=== PATIENT | male | born 1955 | race Caucasian/White ===

== ENCOUNTER → 2016-08-02 | Outpatient (CLI) | payer OTHER ==
[~2016-08-02] MED LIST: ASPI-482 PO; BENA20TA2 PO; CELE100C PO; CLON1TAB3 PO; CRESTOR10 MG PO; ESOM20CA PO; GADOBUTROL 10 MMOL/10 ML VIAL IV ONE; OXYC10TA PO
--- NOTE | 2016-08-02 13:45 | KCIC ---
PROCEDURE Three-view lumbar spine dated 08/02/2016. HISTORY Post laminectomy syndrome. Low back pain. Right hip pain. TECHNIQUE Lateral view and flexion extension views obtained. COMPARISON MRI dated 08/02/2016. Findings: Slight retrolisthesis of L4 on L5 and L3 on L4, stable on the flexion-extension views. Sagittal alignment is otherwise anatomic. Vertebral body heights are maintained. Mild hypertrophic change of the superior and inferior endplates throughout. Mild disc space narrowing at L4 all 5. Moderate arthrosis lower lumbar apophyseal joints. IMPRESSION - Mild retrolisthesis of L3 on L4 and L4 on L5, stable on flexion extension imaging. - Mild to moderate lower lumbar spondylosis. Electronically signed by: Ken Clemons (Aug 02, 2016 13:44:10)
--- NOTE | 2016-08-02 14:02 | KCIC ---
PROCEDURE MRI lumbar spine with and without contrast. HISTORY Low back pain and right hip pain. Prior surgery. TECHNIQUE Sagittal T1, sagittal T2, sagittal STIR, axial T1, and axial T2 sequences are provided. Patient received 10 milliliters of intravenous Gadavist and post-contrast axial and sagittal imaging was performed. COMPARISON November 20, 2013. There is also a CT myelogram from December 17, 2013. FINDINGS There is negligible retrolisthesis at L4-L5. There is otherwise no malalignment. There is minimal endplate edema at L4-L5 which appears degenerative. There is a small hemangioma at L2. There is disc desiccation at L1-L2, L4-L5, and L5-S1. Disc height is mildly narrowed at L4-L5. The conus medullaris is normal in signal intensity and in position. The numbering system assumes 5 lumbar type vertebral bodies. Findings by individual level are as follows: L1-L2: Disc bulge and minimal facet hypertrophy is noted with minimal foraminal narrowing. L2-L3: There is facet hypertrophy without canal or foraminal compromise. L3-L4: Minimal disc bulge and facet hypertrophy are noted. There is slight lateral recess narrowing but no canal stenosis. There is mild foraminal narrowing. L4-L5: There has been a partial laminectomy on the right at this level. There is enhancing tissue noted right paracentral, compatible with granulation tissue. There is a disc bulge present but no residual or recurrent herniation apparent. The right L5 nerve root appears edematous and probably encased by the granulation tissue. There is facet and ligamentum flavum hypertrophy on the left. There is facet hypertrophy on the right. There is lateral recess narrowing bilaterally. There is no canal stenosis. Foraminal narrowing is high-grade on the right and at least moderate on the left. L5-S1: Disc bulge is noted. There is a left paracentral annular fissure. There is facet hypertrophy. There is no canal stenosis. There is mild to moderate bilateral foraminal narrowing. IMPRESSION - Partial laminectomy on the right at L4-L5 with microdiscectomy. Enhancing granulation tissue noted, likely encasing an edematous right L5 nerve root. No evidence of a residual or recurrent herniation. - Additional degenerative changes in the lumbar spine are relatively stable compared to priors. Electronically signed by: Otf Walker MD (Aug 02, 2016 14:00:52)
== END | disposition home or self-care (01) ==
LOC: KCIC MRI 12:22
PROVIDERS: ATTEND Neurological Surgery
DX: M47.899 Other spondylosis, site unspecified (principal); M96.1 Postlaminectomy syndrome, not elsewhere classified; M16.11 Unilateral primary osteoarthritis, right hip
CPT/HCPCS: 72100; 72158; A9585